=== PATIENT | female | born 1985 | race African-American/Black ===

== ENCOUNTER 2021-08-10 01:49 | Emergency (ER) | payer BC, SELFPAY ==
--- NOTE | ~2021-08-10 | CT_ITS ---
EXAMINATION: CT abdomen pelvis w con EXAM DATE: 08/10/2021 07:55 INDICATION: left sided abdominal pain. TECHNIQUE: Spiral CT of the abdomen and pelvis was performed following intravenous injection of 100 m L Omnipaque 350. Axial, coronal and sagittal images of the abdomen and pelvis were reviewed. The do se-length product (DLP) for this examination was 325.76 mGy-cm. The exposure was tailored according to patient size (auto mA exposure control), and iterative reconstruction (ASIR) was used as additiona l dose reduction technique. There is no prior study for comparison. FINDINGS: The liver, spleen, adrenal glands and pancreas are unremarkable. Gallbladder is unremarkab le. No biliary obstruction. Portal and splenic veins are patent. Kidneys enhance symmetrically. T here is no hydronephrosis. The uterus is retroverted and morphologically normal. Left ovary has cys tic lesion measuring 3.2 x 1.8 cm, likely dominant follicle or hemorrhagic cyst. The bladder is unre markable. There is no retroperitoneal or pelvic lymphadenopathy. There are no findings to suggest appendicitis. The stomach and small bowel are unremarkable. There is expected amount of colonic stool. No free intraperitoneal gas. The heart is normal in size. T here are no pericardial or pleural effusions. The lung bases are unremarkable. The bones are unrema rkable. IMPRESSION: 1. Left ovarian dominant follicle or hemorrhagic cyst. 2. No acute intra-abdominal findings. Reviewed, dictated and finalized at location [facility]. [employer]
[2021-08-10 01:50] VITALS: BP 138/92; PULSE 101; RESP 18; TEMP 36.6; O2SAT 99
[2021-08-10 05:06] VITALS: BP 104/91; PULSE 88; RESP 16; O2SAT 100
[2021-08-10] MEDS: SODIUM CHLORIDE 0.9% IV 1,000 ML 999 ML IV CONT (05:28)
[2021-08-10] MEDS: ONDANSETRON INJ 4 MG/2 ML VIAL IV PUSH (05:28)
[2021-08-10 05:41] LABS: Basophils Percent Auto 0.2 % (0.2-1.2); Hematocrit 46.5 % (37.0-47.0); Hemoglobin 15.7 g/dL (12.0-15.0); Immature Granulocyte Absolute 0.04 K/mm3 (0.00-0.031); Immature Granulocyte Percent A 0.4 % (0-0.5); Lymphocytes Absolute Auto 0.93 K/mm3 (0.9-3.2); Mean Corpuscular HGB Conc 33.8 g/dl (32-36); Mean Corpuscular Hemoglobin 31.3 pg (26-34); Mean Corpuscular Volume 92.6 fl (80-100); Mean Platelet Volume 9.4 fl (7.4-10.4); Monocytes Absolute Auto 0.3 K/mm3 (0.1-0.6); Monocytes Percent Auto 3.1 % (2.6-8.5); Neutrophils Percent Auto 87.3 % (45.5-73.1); Platelet Count Result 220 k/mm3 (150-375); Red Blood Count 5.02 M/mm3 (4.2-5.4); Red Cell Distribution Width 12.3 % (11.5-14.5); White Blood Count 10.3 K/mm3 (4.5-10.0)
[2021-08-10 05:58] LABS: Alanine Aminotransferase 22 U/L (4-35); Albumin Level 4.8 g/dL (3.5-5.1); Alkaline Phosphatase 79 U/L (38-126); Anion Gap 9 mmol/L (8-16); Aspartate Amino Transferase 38 U/L (14-36); Bilirubin,Total 0.6 mg/dL (0.2-1.3); Blood Urea Nitrogen 11 mg/dL (7-17); Calcium 9.7 mg/dL (8.4-10.2); Carbon Dioxide 26 mmol/L (22-30); Chloride 102 mmol/L (98-107); Estimated CRCL calculation 54 ml/min; Estimated Glomerular Filt Rate > 60; Glucose 95 mg/dL (65-110); Lipase 110 U/L (23-300); Potassium 4.1 mmol/L (3.4-5.0); Sodium 137 mmol/L (137-145)
[2021-08-10 06:32] VITALS: BP 108/79; PULSE 83; RESP 16; O2SAT 100
[2021-08-10 07:11] LABS: Add Urine Microscopic? YES; Appearance Urine Clear (Clear); Bilirubin Urine Negative (Negative); Blood Urine 1+ (Negative); Color Urine Yellow (Yellow); Glucose Urine UA Negative (Negative); Ketones Urine 1+ mg/dL (Negative); Leukocyte Esterase Ur Negative LEU/UL (Negative); Mucus Urine Moderate /lpf; Nitrate Urine Negative (Negative); Protein Urine 1+ mg/dL (Negative); Specific Grav Ur 1.027 (1.001-1.035); Squamous Epithelial Cell Urine Occasional /hpf (Few); WBC Urine 0-3 /hpf
[2021-08-10 07:31] LABS: Urine Pregnancy Test Negative
[2021-08-10 07:32] LABS: Pregnancy On Board Control Positive
--- NOTE | 2021-08-10 07:36 | ED.GENADULT ---
HPI - General Adult General Chief complaint: Abdominal Pain <Elvis Zuniga MD - Last Filed: 08/10/21 07:39> Stated complaint: n/v/d, sore throat <Elvis Zuniga MD - Last Filed: 08/10/21 07:39> Time Seen by Provider: 08/10/21 04:53 <Elvis Zuniga MD - Last Filed: 08/10/21 07:39> History of Present Illness HPI narrative: Patient is a 36-year-old female transitioning to male who presents to the ER with abdominal pain. Ongoing for last 2 days. Associate with nausea/vomiting/diarrhea. No known sick contacts. Has pain along the left side of his abdomen. No urinary frequency urgency or dysuria. Has not had similar discomfort to this. No alleviating factors at home. Patient also endorses history of bipolar disorder for which he is not currently taking medication after discussing with his physician and agreeing that they could stop the medication. Reports he is healthy spot in his life with work. <Elvis Zuniga MD - Last Filed: 08/10/21 07:39> Related Data Allergies/adverse reactions: Allergies Allergy/AdvReac Type Severity Reaction Status Date / Time Penicillins Allergy Unknown Verified 08/10/21 05:27 <Elvis Zuniga MD - Last Filed: 08/10/21 07:39> Review of Systems Review of Systems: All systems reviewed & are unremarkable except as noted in HPI and below <Elvis Zuniga MD - Last Filed: 08/10/21 07:39> Constitutional: Constitutional: Denies chills, Denies fever(s) and Denies weakness <Elvis Zuniga MD - Last Filed: 08/10/21 07:39> ENT: Denies nasal congestion and Denies sore throat <Elvis Zuniga MD - Last Filed: 08/10/21 07:39> Gastrointestinal: Gastrointestinal: Reports abdominal pain, Reports diarrhea, Reports nausea and Reports vomiting <Elvis Zuniga MD - Last Filed: 08/10/21 07:39> Genitourinary: Genitourinary: Denies nocturia, Denies dysuria and Denies flank pain <Elvis Zuniga MD - Last Filed: 01/19/22 07:39> Musculoskeletal: Musculoskeletal: Denies back pain and Denies muscle cramps <Elvis Zuniga MD - Last Filed: 08/10/21 07:39> Neurologic: Denies headache(s), Denies focal weakness and Denies numbness <Elvis Zuniga MD - Last Filed: 08/10/21 07:39> PMFSH Past Medical History Medical History: Medical History (Updated 08/10/21 @ 08:32 by Fly Valencia MD) Bipolar disorder <Elvis Zuniga MD - Last Filed: 08/10/21 07:39> Surgical History Surgical History: Surgical History (Updated 08/10/21 @ 07:38 by Elvis Zuniga MD) Hx of breast reduction, elective <Elvis Zuniga MD - Last Filed: 08/10/21 07:39> Exam Narrative: GENERAL: Well-appearing, well-nourished, and in no acute distress. HEAD: Normocephalic, atraumatic. NECK: Supple. CHEST: Clear to auscultation. No respiratory distress. HEART: Regular rate and rhythm. Normal peripheral pulses. ABDOMEN: Soft, left upper and lower quadrant tenderness with guarding in the upper quadrant, nondistended, normal active bowel sounds. EXTREMITIES: Normal range of motion. No edema. SKIN: Warm, dry, no rash. NEURO: Alert and oriented x3. PSYCH: Normal mood and affect. <Elvis Zuniga MD - Last Filed: 08/10/21 07:39> Course Course Emergency Course: Persistent pain despite morphine with some guarding on exam. Will obtain CT scan. Labs otherwise normal with ketones and slight elevation of white count. Transfer care to Dr. Valencia. <Elvis Zuniga MD - Last Filed: 08/10/21 07:39> Reevaluation(s) Reevaluation #1: Impressions Abdomen/Pelvis CT 08/10/21 08:06 IMPRESSION: 1. Left ovarian dominant follicle or hemorrhagic cyst. 2. No acute intra-abdominal findings. Patient care was signed out to me by Dr. Zuniga. At time of signout CT was pending. CT did show a left ovarian dominant follicle or hemorrhagic cyst. Patient was updated on the results of his CT and his labs. The patient had been in disc
[2021-08-10 09:00] VITALS: BP 101/70; PULSE 76; RESP 16; O2SAT 97
== END 2021-08-10 09:00 | disposition home or self-care (01) ==
PROVIDERS: Emergency Provider Emergency Medicine
DX: N83.202 Unspecified ovarian cyst, left side (principal); F31.9 Bipolar disorder, unspecified
CPT/HCPCS: 36415; 74177; 80053; 81001; 81025; 83690; 85025; 96361; 96374; 99284; J2405; J7030; Q9967

== ENCOUNTER 2021-08-13 06:10 | Observation (INO) | payer BC, SELFPAY ==
[2021-08-13] VITALS (12 sets, daily range): BP systolic 93–137; BP diastolic 57–88; PULSE 77–112; RESP 14–25; TEMP 36.2–36.8; O2SAT 99–100
--- NOTE | ~2021-08-13 | US_ITS ---
US pelvic complete DATE: 08/13/2021 08:16 INDICATION: Left lower quadrant pain TECHNIQUE: Real-time imaging via transabdominal approach only. Patient declined transvaginal examinat ion. COMPARISON: 08/10/2019 CT abdomen pelvis FINDINGS: The examination is limited due to suboptimal distention of the urinary bladder providing li mited window for visualization of the pelvic structures on transabdominal examination; patient declin ed transvaginal examination. Retroverted uterus. There is particularly limited visualization of the retroverted uterine fundus. Ce ntral endometrial echo complex in the lower uterine segment measures 3 mm AP dimension. Approximately 3 cm left ovarian cyst. No free pelvic fluid collection is noted. IMPRESSION: Limited transabdominal examination due to suboptimal bladder distention Retroverted uterus Approximately 3 cm left ovarian cyst Reviewed, dictated and finalized at [facility]. Reviewed, dictated and finalized at location A. [employer] IMPRESSION: Limited transabdominal examination due to suboptimal bladder disten tion Retroverted uterus Approximately 3 cm left ovarian cyst
--- NOTE | ~2021-08-13 | US_ITS ---
US transvaginal DATE: 08/13/2021 10:33 INDICATION: Left adnexal pain TECHNIQUE: Transvaginal imaging, color flow Doppler analysis COMPARISON: 08/10/2021 CT abdomen pelvis 08/13/2021 pelvic transabdominal ultrasound examination FINDINGS: The left ovary is situated deep in the pelvis. Ovarian margins are ill-defined. There is up to approximately 4-5 cm cystic area in the left adnexal area, apparently of ovarian origin. No Doppl er signal or color flow of the left ovary is detected by transvaginal examination. Left ovarian torsi on is not excluded. The right ovary is not visualized. IMPRESSION: Possible 4 to 5 cm cystic area in the left adnexal area, likely of ovarian origin. Margin s of left ovary are not well-defined. There is no color flow or Doppler signal from the left ovary. L eft ovarian torsion is not excluded. Reviewed, dictated and finalized at [facility]. Reviewed, dictated and finalized at location [facility]. ZIFF DAVIS IMPRESSION: Possible 4 to 5 cm cystic area in the left adnexal area, likely of ovarian origin. Margins of left ovary are not well-defined. There is no color f low or Doppler signal from the left ovary. Left ovarian torsion is not excluded .
[2021-08-13 06:59] LABS: Basophils Percent Auto 0.3 % (0.2-1.2); Hematocrit 46.7 % (37.0-47.0); Hemoglobin 15.8 g/dL (12.0-15.0); Immature Granulocyte Absolute 0.04 K/mm3 (0.00-0.031); Immature Granulocyte Percent A 0.4 % (0-0.5); Lymphocytes Absolute Auto 0.66 K/mm3 (0.9-3.2); Lymphocytes Percent Auto 7.2 % (18.3-44.2); Mean Corpuscular HGB Conc 33.8 g/dl (32-36); Mean Corpuscular Hemoglobin 31.3 pg (26-34); Mean Corpuscular Volume 92.5 fl (80-100); Mean Platelet Volume 9.4 fl (7.4-10.4); Monocytes Absolute Auto 0.3 K/mm3 (0.1-0.6); Neutrophils Absolute Auto 8.2 K/mm3 (1.3-6.7); Neutrophils Percent Auto 89.1 % (45.5-73.1); Platelet Count Result 202 k/mm3 (150-375); Red Blood Count 5.05 M/mm3 (4.2-5.4); Red Cell Distribution Width 12.4 % (11.5-14.5); White Blood Count 9.2 K/mm3 (4.5-10.0)
[2021-08-13 07:08] LABS: Add Urine Microscopic? YES; Appearance Urine Clear (Clear); Bilirubin Urine Negative (Negative); Blood Urine 1+ (Negative); Color Urine Yellow (Yellow); Glucose Urine UA Negative (Negative); Ketones Urine 2+ mg/dL (Negative); Leukocyte Esterase Ur Trace LEU/UL (Negative); Mucus Urine Rare /lpf; Nitrate Urine Negative (Negative); Protein Urine 1+ mg/dL (Negative); RBC Urine 0-2 /hpf (0-2); Specific Grav Ur 1.024 (1.001-1.035); Squamous Epithelial Cell Urine Few /hpf (Few); Urobilinogen Urine Negative mg/dL (<2.0)
[2021-08-13 07:20] LABS: Alanine Aminotransferase 19 U/L (4-35); Alkaline Phosphatase 92 U/L (38-126); Anion Gap 21 mmol/L (8-16); Aspartate Amino Transferase 30 U/L (14-36); Bilirubin,Total 1.1 mg/dL (0.2-1.3); Blood Urea Nitrogen 13 mg/dL (7-17); Calcium 9.6 mg/dL (8.4-10.2); Carbon Dioxide 13 mmol/L (22-30); Chloride 101 mmol/L (98-107); Estimated CRCL calculation 54 ml/min; Estimated Glomerular Filt Rate > 60; Glucose 64 mg/dL (65-110); Lipase 133 U/L (23-300); Potassium 4.4 mmol/L (3.4-5.0); Sodium 135 mmol/L (137-145)
--- NOTE | 2021-08-13 07:20 | PC.NURSE ---
Pt. preferred name Avel, and pronouns he, him
--- NOTE | 2021-08-13 08:42 | ED.GENADULT ---
HPI - General Adult General Chief complaint: Abdominal Pain Stated complaint: n/d, l abd pain, dizzy Time Seen by Provider: 08/13/21 06:25 History of Present Illness HPI narrative: Patient is a 36-year-old female who is male that presents ER with abdominal pain. Left-sided. Worse with movement. Ongoing since 08/08/2021. Associate with diarrhea as well as nausea. Reports diarrhea still present but has improved. Reports that her main issue is that she cannot get to sleep at night. She has tried no medications for this. Patient recently underwent CT scan which showed left ovarian cyst. She denies any discharge or bleeding. No fevers or chills or sweats. No chest pain or chest pressure. Related Data Allergies Allergy/AdvReac Type Severity Reaction Status Date / Time Penicillins Allergy Unknown Verified 08/10/21 05:27 Review of Systems Review of Systems: All systems reviewed & are unremarkable except as noted in HPI and below Constitutional: Constitutional: Denies chills, Denies fever(s) and Denies weakness ENT: Denies nasal congestion and Denies sore throat Cardiovascular: Cardiovascular: Denies chest pain, Denies rapid heart rate and Denies radiating jaw, neck or arm pain Respiratory: Respiratory: Denies cough and Denies dyspnea Gastrointestinal: Gastrointestinal: Reports abdominal pain, Reports diarrhea and Denies nausea Genitourinary: Genitourinary: Denies nocturia, Denies dysuria and Denies flank pain PMFSH Past Medical History Medical History (Updated 08/13/21 @ 11:09 by Elvis Zuniga MD) Bipolar disorder Surgical History Surgical History (Updated 08/10/21 @ 07:38 by Elvis Zuniga MD) Hx of breast reduction, elective Exam Narrative: GENERAL: Well-appearing, well-nourished, and in no acute distress. HEAD: Normocephalic, atraumatic. CHEST: Clear to auscultation. No respiratory distress. HEART: Regular rate and rhythm. Normal peripheral pulses. ABDOMEN: Soft, tender palpation left upper and left lower quadrant, nondistended. EXTREMITIES: Normal range of motion. No edema. SKIN: Warm, dry, no rash. NEURO: Alert and oriented x3. PSYCH: Normal mood and affect. Course Course Emergency Course: Discussed results of original ultrasound with patient. Discussed that there is need for transvaginal ultrasonography to fully evaluate the left ovary. Patient then went back to ultrasound. Read shows possible torsion. Discussed case with Dr. Baez. He would like the patient admitted for observation to [facility] and for the patient be kept n.p.o. as he may require surgery. Patient verbalized understanding treatment plan. Vital Signs Vital signs: Vital Signs Temperature 97.8 F 08/13/21 06:18 Pulse Rate 106 H 08/13/21 06:18 Respiratory Rate 18 08/13/21 06:18 Blood Pressure 110/75 08/13/21 06:18 Pulse Oximetry 100 08/13/21 06:18 Temperature 97.8 F 08/13/21 06:18 Pulse Rate 97 08/13/21 09:37 Respiratory Rate 14 08/13/21 09:37 Blood Pressure 137/88 08/13/21 09:37 Pulse Oximetry 100 08/13/21 09:37 Medical Decision Making Vital Signs Vital Signs: Vital Signs Temperature 97.8 F 08/13/21 06:18 Pulse Rate 106 H 08/13/21 06:18 Respiratory Rate 18 08/13/21 06:18 Blood Pressure 110/75 08/13/21 06:18 Pulse Oximetry 100 08/13/21 06:18 Temperature 97.8 F 08/13/21 06:18 Pulse Rate 97 08/13/21 09:37 Respiratory Rate 14 08/13/21 09:37 Blood Pressure 137/88 08/13/21 09:37 Pulse Oximetry 100 08/13/21 09:37 Lab Data Result diagrams: 08/13/21 06:47 08/13/21 06:47 Labs: Lab Results 08/13/21 08/13/21 08/13/21 Range/Units 06:47 06:47 06:51 WBC 9.2 (4.5-10.0) K/mm3 RBC 5.05 (4.2-5.4) M/mm3 Hgb 15.8 H (12.0-15.0) g/dL Hct 46.7 (37.0-47.0) % MCV 92.5 (80-100) fl MCH 31.3 (26-34) pg MCHC 33.8 (32-36) g/dl RDW 12.4 (11.5-14.5) % Plt Count 202 (150-375) k/mm3
[2021-08-13] MEDS: ONDANSETRON INJ 4 MG/2 ML VIAL IV PUSH ×2 (09:36→22:47)
--- NOTE | 2021-08-13 11:50 | PC.NURSE ---
This patient, Vicky Fournier, was received from ED via wheelchair on 08/13/21 at 1150. Patient oriented to unit policies and routines
--- NOTE | 2021-08-13 12:12 | PM.IMHP ---
H&P: HPI History of Present Illness Date/Time: 08/13/21 12:12 Chief Complaint: abdominal pain ovarian torsion Narrative: 36 yo transgender male who presents with abdominal pain. Pt has been having persistent abdominal pain for the past two weeks. Pt initially attributed the pain to missing his testosterone injection and the potential start of a menses. Pt then gave himself the testosterone and never had a menses. He then started having intense shooting pain in the area. The pain was so intense it caused nausea and emesis. Pt then developed diarrhea. Pt presented to the ER today for worsening pain. Pt received transvaginal US that showed concerns for a 4-5 cm cystic structure in the left ovary and no discernable blood flow. Pt is tender to palpation with guarding in the LLQ. Review of Systems Cardiovascular: Cardiovascular: Denies chest pain, Denies leg edema, Denies palpitations, Denies dyspnea and Denies dyspnea on exertion Respiratory: Respiratory: Denies cough, Denies dyspnea and Denies dyspnea on exertion Gastrointestinal: Gastrointestinal: Denies abdominal pain, Denies constipation, Denies diarrhea, Denies nausea and Denies vomiting Genitourinary: Genitourinary: Denies hematuria, Denies urinary frequency, Denies dysuria, Denies pelvic pain, Denies urinary incontinence and Denies vaginal discharge Neurologic: Reports system reviewed and no additional complaints, except as documented Psychiatric: Psychiatric: Reports no additional psychiatric complaints Endocrine: Endocrine: Denies palpitations PMFSH Past Medical History Medical History (Updated 08/13/21 @ 11:09 by Elvis Zuniga MD) Bipolar disorder Surgical History Surgical History (Updated 08/10/21 @ 07:38 by Elvis Zuniga MD) Hx of breast reduction, elective Meds Home Medications and Allergies Allergies Allergy/AdvReac Type Severity Reaction Status Date / Time Penicillins Allergy Unknown Verified 08/10/21 05:27 Vital Signs Vital Signs - 24 hr 08/13/21 06:18 08/13/21 07:19 08/13/21 09:37 Temperature 36.6 C Pulse Rate 106 H 97 97 Respiratory Rate 18 14 14 Blood Pressure 110/75 103/79 137/88 Pulse Oximetry 100 100 100 08/13/21 11:15 Temperature Pulse Rate 97 Respiratory Rate 14 Blood Pressure 100/87 Pulse Oximetry 100 Exam Const: General: no acute distress Eyes: EOM: EOMs intact bilaterally Neck: Neck: supple Thyroid: thyroid normal Chest: Breast/axilla inspection: normal inspection of the breasts Breast/axilla palpation: normal palpation of the breasts, normal palpation of the axillae and no axillary lymphadenopathy Resp: Effort & Inspection: normal respiratory effort Auscultation: clear to auscultation bilaterally Cardio: Rate: regular rate Rhythm: regular rhythm GI: Inspection: non-distended GI Palp: Yes abdominal tenderness, Yes Soft to palpation, Yes Tenderness to palpation present (GI) and Yes Guarding due to palpation present (GI) Auscultation: normal bowel sounds Skin: General skin exam: normal color and no rashes or lesions noted Neuro: Cognition (Neuro): normal cognition Speech: normal speech Extrem: General: normal to inspection and no edema Psych: Mental Status: mental status grossly normal Affect: normal affect H&P: Results Labs Labs: Short CBC 08/13/21 Range/Units 06:47 WBC 9.2 (4.5-10.0) K/mm3 Hgb 15.8 H (12.0-15.0) g/dL Hct 46.7 (37.0-47.0) % Plt Count 202 (150-375) k/mm3 BMP 08/13/21 06:47 Sodium 135 L Potassium 4.4 Chloride 101 Carbon Dioxide 13 L BUN 13 Creatinine 1.00 Glucose 64 L Calcium 9.6 Liver Function 08/13/21 Range/Units 06:47 Total Bilirubin 1.1 (0.2-1.3) mg/dL AST 30 (14-36) U/L ALT 19 (4-35) U/L Alkaline Phosphatase 92 (38-126) U/L Albumin 5.0 (3.5-5.1) g/dL Urine 08/13/21 Range/Units 06:51 Urine Color Yellow (Yellow) Urine Appearance Clear (Clear) Urine pH 5.0 (5.0-9.0) Ur
[2021-08-13] MEDS: LACTATED RINGERS 1,000 ML 125 ML (12:17)
[2021-08-13] MEDS: MORPHINE SULFATE (*CRX) 4 MG/ML INJ IV PUSH (12:18)
--- NOTE | 2021-08-13 12:18 | WPDHPUPDATE1 ---
History and Physical Update Update Date/Time: 08/13/21 12:18 History and Physical has been reviewed, including an updated exam of the patient. There are NO changes in the patient's condition. Risks, benefits, and alternatives have been discussed and questions answered. Patient agrees to proceed with procedure.
--- NOTE | 2021-08-13 12:21 | WPDANESEPP ---
Anes - Eval Pre Procedure Procedure: Exploratory Laparotomy Date/Time: 08/13/21 12:21 Surgeon: Sasha Preop Diagnosis: Torsion Left Ovary Pre Op Diagnosis: left ovarian torsion Patient Data Age: 36 Gender: F Height: 1.57 m Weight: 61.24 kg Last Vital Signs Temp 97.8 F 08/13/21 06:18 Pulse 97 08/13/21 11:15 Resp 14 08/13/21 11:15 BP 100/87 08/13/21 11:15 Pulse Ox 100 08/13/21 11:15 Allergies Allergy/AdvReac Type Severity Reaction Status Date / Time Penicillins Allergy Unknown Verified 08/10/21 05:27 Laboratory Tests 08/13/21 08/13/21 08/13/21 06:47 06:47 06:51 WBC 9.2 K/mm3 K/mm3 (4.5-10.0) RBC 5.05 M/mm3 M/mm3 (4.2-5.4) Hgb 15.8 g/dL H g/dL (12.0-15.0) Hct 46.7 % % (37.0-47.0) MCV 92.5 fl fl (80-100) MCH 31.3 pg pg (26-34) MCHC 33.8 g/dl g/dl (32-36) RDW 12.4 % % (11.5-14.5) Plt Count 202 k/mm3 k/mm3 (150-375) MPV 9.4 fl fl (7.4-10.4) Immature Gran % (Auto) 0.4 % % (0-0.5) Neut % (Auto) 89.1 % H % (45.5-73.1) Lymph % (Auto) 7.2 % L % (18.3-44.2) [place] % (Auto) 3.0 % % (2.6-8.5) Eos % (Auto) 0.0 % % (0-4.4) Baso % (Auto) 0.3 % % (0.2-1.2) Lymph # (Auto) 0.66 K/mm3 L K/mm3 (0.9-3.2) [place] # (Auto) 0.3 K/mm3 K/mm3 (0.1-0.6) Eos # (Auto) 0.0 K/mm3 K/mm3 (0-0.3) Baso # (Auto) 0.0 K/mm3 K/mm3 (0.0-0.1) Abs Immat Gran (auto) 0.04 K/mm3 H K/mm3 (0.00-0.031) Absolute Neuts (auto) 8.2 K/mm3 H K/mm3 (1.3-6.7) Absolute Nucleated RBC 0.0 K/mm3 K/mm3 (0.0-0.012) Nucleated RBC % 0.0 % % (0.0-0.2) Sodium 135 mmol/L L mmol/L (137-145) Potassium 4.4 mmol/L mmol/L (3.4-5.0) Chloride 101 mmol/L mmol/L (98-107) Carbon Dioxide 13 mmol/L L mmol/L (22-30) Anion Gap 21 mmol/L H mmol/L (8-16) BUN 13 mg/dL mg/dL (7-17) Creatinine 1.00 mg/dL mg/dL (0.7-1.0) Estim Creat Clear Calc 54 ml/min ml/min Estimated GFR > 60 (59 - ) Glucose 64 mg/dL L mg/dL (65-110) Calcium 9.6 mg/dL mg/dL (8.4-10.2) Total Bilirubin 1.1 mg/dL mg/dL (0.2-1.3) AST 30 U/L U/L (14-36) ALT 19 U/L U/L (4-35) Alkaline Phosphatase 92 U/L U/L (38-126) Total Protein 9.0 g/dL H g/dL (6.3-8.2) Albumin 5.0 g/dL g/dL (3.5-5.1) Lipase 133 U/L U/L (23-300) Urine Color Yellow (Yellow) Urine Appearance Clear (Clear) Urine pH 5.0 (5.0-9.0) Ur Specific [place] 1.024 (1.001-1.035) Urine Protein 1+ mg/dL H mg/dL (Negative) Urine Glucose (UA) Negative mg/dL mg/dL (Negative) Urine Ketones 2+ mg/dL H mg/dL (Negative) Ur Blood (Man) 1+ H (Negative) Urine Nitrate Negative (Negative) Urine Bilirubin Negative (Negative) Urine Urobilinogen Negative mg/dL mg/dL (<2.0) Leukocyte Esterase Rfl Trace ALEX/UL H ALEX/UL (Negative) Urine RBC 0-2 /hpf /hpf (0-2) Urine WBC 4-6 /hpf H /hpf Ur Squamous Epith Cells Few /hpf /hpf (Few) Urine Mucus Rare /lpf /lpf Patient hx anesthesia problems: none Family hx anesthesia problems: none Prior surgeries: breast reduction Results Review: All pre-operative results and documents have been reviewed as part of the pre-operative evaluation. [facility] Past Medical History Medical History Bipolar disorder Surgical History Surgical History Hx of breast reduction, elective Social History Social History (Reviewed 08/13/21 @ 12:23 by Lovely Thomas
--- NOTE | 2021-08-13 13:10 | PC.NURSE ---
Pt transferred to OR via bed.
--- NOTE | 2021-08-13 13:13 | WPDANESEFPP ---
Anes - Eval Final PreProcedure Day of Procedure 08/13/21 13:13 Patient weight: normal Heart: regular rate and rhythm Lungs: clear to auscultation and normal air movement Airway: Mallampati scale class II Neurological: alert and oriented Last oral intake: >/= 8 hours ASA classification: II Emergent: yes Anesthetic plan: proceed Anesthesia type and monitoring: general ETT and standard monitoring Results Review: All pre-operative results and documents have been reviewed as part of the pre-operative evaluation. Informed Consent: The patient's anesthetic plan and its attendant risks and benefits were discussed with the patient/family/POA. Questions were solicited and answers provided to the satisfaction of the patient/family/POA.
--- NOTE | 2021-08-13 14:11 | W.PM.PROC2 ---
Procedure Note - Detailed Date of Procedure 08/13/21 Pre-op Diagnosis left ovarian torsion abdominal pain Post-op Diagnosis same Procedure Performed diagnostic laparoscopy left salpingo-oophorectomy Surgeon Asim Baez MD Anesthesia general Indications abdominal pain, 4-5 cm left adnexal cyst on US with no detectable blood flow Findings dense adhesions between the left adnexa and the uterine serosa and pelvic sidewall, multiple paratubal cysts Description of Procedure The patient was taken to the operating room where general endotracheal anesthesia was undertaken and found to be adequate. She was then prepped and draped in the dorsal lithotomy position and placed in adjustable stirrups. A pre-operative team brief and a time out were completed. A catheter was placed to drain the bladder. Retractors were placed placed in the vagina and the cervix was identified. An acorn uterine manipulator was placed. Attention was then turned to the abdomen which was anesthetized umbilically with injected anesthestic. A 10 mm skin incision was made in the umbilicus. A 10 mm optical trocar was then placed with direct camera visualization of the abdominal layers during placement. The trocar stylet was removed and the camera was used to verify intra-abdominal placement. CO2 insufflation was then connected and resumed. The pelvis was inspected. A left lower quadrant 5 mm port was placed, in addition to a right lower quadrant 5 port in the standard fashion after using local anesthetic. The pelvis survey was performed. The left ovary was noted to be intimately adherent to the left ovarian fossa and the uterine peritoneum. There were multiple paratubal cysts noted in the left adnexa. The left adnexa was inflamed. The Right ovary was noted to have a small simple appearing cyst. The decision was made to proceed with left salpingo-oophorectomy. The course of the ureter was identified bilaterally. The left infundibulopelvic ligament was identified and triple ligated and transected with the Ligasure device. The dissection was continued along the inferior aspect of the ovary through the broad ligament and inferior mesosalpinx. The utero-ovarian ligament was identified, ligated and transected. The ovary was then bluntly dissected from the uterine peritoneum. The adherent peritoneal connection was transected with the ligasure device. The left fallopian tube was transected near its insertion site to the uterine fundus. The left fallopian tube and ovary were then placed in a 10 mm endopouch. The specimen was removed through the umbilical 10 mm port site without difficulty. The surgical field was thoroughly irrigated using normal saline. All surgical beds were noted to be hemostatic. A Fer-Thommason device was used to closed the 10 mm umbilical site with Vicryl suture. The abdomen was relieved of all CO2 gas. All remaining trocars were removed from the abdomen. Sponge, lap and needle counts were correct. All skin incisions were closed with 4-0 Vicryl suture subcuticularly. The uterine manipulator was removed from the uterus. Hemostasis of the cervix was noted. The urinary catheter was removed. The patient was taken out of dorsal lithotomy position. Anesthesia was reversed. The patient was taken to the PACU. Estimated Blood Loss 25 Urine Output 100 Drains No Packing No Pathology yes (left ovary and fallopian tube, paratubal cysts) Complications No immediate complications Condition stable Disposition PACU
[2021-08-13] MEDS: LACTATED RINGERS 1,000 ML 30 ML IV CONT (14:25)
[2021-08-13] MEDS: fentaNYL CITRATE INJ (*CRX) 100 MCG/2 ML VIAL 25 MCG IV PUSH ×7 (14:48→15:10)
--- NOTE | 2021-08-13 15:25 | PC.NURSE ---
This patient, Vicky Fournier, was received from PACU per pt bed on 08/13/21 at 1525. Patient/family oriented to unit policies and routines.
[2021-08-13] MEDS: diphenhydrAMINE HCl INJ 50 MG/ML VIAL 25 MG IV PUSH (16:37)
[2021-08-13] MEDS: HYDROcodone/acetaminophen (*CRX) 5-325 MG TABLET 1 TAB PO (16:38)
[2021-08-13] MEDS: MORPHINE SULFATE (*CRX) 2 MG/ML INJ IV PUSH ×2 (17:26→21:16)
[2021-08-13] MEDS: IBUPROFEN 600 MG TABLET PO (17:27)
[2021-08-14 00:05] VITALS: BP 97/66; PULSE 76; RESP 16; TEMP 36.3; O2SAT 100
[2021-08-14 04:40] VITALS: BP 103/79; PULSE 84; RESP 16; TEMP 36.4; O2SAT 100
[2021-08-14] MEDS: HYDROcodone/acetaminophen (*CRX) 5-325 MG TABLET 1 TAB PO (04:40)
[2021-08-14] MEDS: IBUPROFEN 600 MG TABLET PO (04:41)
--- NOTE | 2021-08-14 08:34 | P.DS_ITS ---
DS: Admitting Diagnosis Discharge Date 08/14/21 Admitting Diagnosis abdominal pain suspected ovarian torsion DS: Summary Hospital Course Hospital Course: 36 yo transgender male who presented with acute onset abdominal pain. Pt had pelvic US that showed a enlarged cystic left ovary without detectable blood flow. Pt had an acutely tender abdomen so decision was made for surgical managment. Pt under went diagnostic laparoscopy with left salpingo- oophorectomy. Pt is doing well post-op. He reports some mild nausea. He states his pain is controlled with PO analgesia. He is voiding spontaneously. Time spent discussing smoking cessation with patient: 3 to 10 minutes Status at Discharge Overall status at discharge: patient is progressing back to baseline Time Spent with Patient Time attestation: Total time spent providing and/or coordinating discharge services: Time spent: Less than 30 minutes Exam Const: General: cooperative, healthy appearing and comfortable Nutritional Appearance: average body habitus Resp: Effort & Inspection: normal respiratory effort and able to speak in complete sentences Cardio: Rate: regular rate Rhythm: regular rhythm GI: Inspection: incision GI Palp: Yes abdominal tenderness, Yes Soft to palpation and No Guarding due to palpation present (GI) DS: Data Data Completed and Pending Pending studies at discharge: Pending at discharge 08/13/21 13:51 Surgical [PTH] Routine Discharge Plan Discharge Consulting providers: Rishabh Meza Discharging Clinician: Asim Baez Patient Disposition: Home, Self-Care Activity: as tolerated and pelvic rest Diet: regular Patient Instructions: Antibiotic Form, Salpingo-Oophorectomy (DC) Stand Alone Forms: General Discharge Information Follow-up/Referrals: Asim Baez MD [Physician] - 2 Weeks Discharge Medications: New hydrocodone-acetaminophen 5-325 mg tablet 1 tablet PO Q6H PRN (Reason: pain) Qty: 28 RF: 0 ibuprofen 600 mg tablet 600 mg PO Q6H PRN (Reason: pain) Qty: 30 RF: 0 ondansetron 4 mg tablet,disintegrating 4 mg PO Q6H PRN (Reason: nausea and vomiting) Qty: 30 RF: 0 acetaminophen 500 mg capsule 500 mg PO Q6H PRN (Reason: pain) Qty: 30 RF: 0 Date of admission: 08/13/21 11:05 Primary Care Provider: PHYSICIAN,INFECTION PREVENTION COORDINATOR Admitting Provider: Asim Baez Attending physician on admission: Asim Baez Condition: Stable
[2021-08-14 08:45] VITALS: BP 106/75; PULSE 85; RESP 18; TEMP 36.6
--- NOTE | 2021-08-14 10:35 | PC.NURSE ---
MD called prescriptions into pt's pharmacy since he opted to change pharmacies today. Pt was taking the bus to picker his prescriptions and then to home. MD aware.
== END 2021-08-14 10:35 | disposition home or self-care (01) ==
LOC: ANHED 11:11 → ANHOB2 11:24
PROVIDERS: Emergency Medicine; Admitting Provider Student in an Organized Health Care Education/Training Program; Emergency Provider Emergency Medicine; Visit Provider Student in an Organized Health Care Education/Training Program
PROC: (CPT 49320; principal; 2021-08-13 13:00)
DX: N83.512 Torsion of left ovary and ovarian pedicle (principal); D27.1 Benign neoplasm of left ovary; N73.6 Female pelvic peritoneal adhesions (postinfective); N83.8 Other noninflammatory disorders of ovary, fallopian tube and broad ligament; N83.291 Other ovarian cyst, right side; F31.9 Bipolar disorder, unspecified; F64.8 Other gender identity disorders
CPT/HCPCS: 58661; 36415; 76830; 76856; 80053; 81001; 81025; 83690; 85025; 88305; 96374; 99285; A9270; G0378; J0330; J1100; J1200; J2250; J2270; J2405; J2704; J2710; J3010; J7030; J7120

== ENCOUNTER 2021-10-18 18:29 | Emergency (ER) | payer BC, SELFPAY ==
--- NOTE | ~2021-10-18 | XR_ITS ---
XR chest 2V DATE: 10/18/2021 19:11 INDICATION: Chest pain, shortness of breath. Smoker. TECHNIQUE: PA and lateral views COMPARISON: None FINDINGS: Normal heart size. No hilar or mediastinal enlargement. No pulmonary infiltrate or consolid ation, pleural effusion or pulmonary vascular congestion or pneumothorax. Mild levoscoliosis of the thoracic spine. IMPRESSION: No active cardiopulmonary disease Reviewed, dictated and finalized at location A.
--- NOTE | 2021-10-18 18:43 | ED.CHESTPAIN ---
HPI - Chest Pain General Chief Complaint: Anxiety <Aniya Hughes MD - Last Filed: 10/18/21 21:59> Stated Complaint: CHEST PAIN <Aniya Hughes MD - Last Filed: 10/18/21 21:59> Time Seen by Provider: 10/18/21 18:43 <Aniya Hughes MD - Last Filed: 10/18/21 21:59> Source: patient <Aniya Hughes MD - Last Filed: 10/18/21 21:59> Mode of arrival: EMS <Aniya Hughes MD - Last Filed: 10/18/21 21:59> Limitations: no limitations <Aniya Hughse MD - Last Filed: 10/18/21 21:59> History of Present Illness HPI narrative: Patient is a 36-year-old transgender male (female to male transition, pronouns he/him) with a history of bipolar disorder, depression, anxiety, presenting to the emergency department for evaluation of panic attack. Patient states that he has had increasing anxiety daily with numerous panic attacks daily including 1 yesterday. Patient states that he had a panic attack after getting her teeth pulled at the dentist today, states that he was very nervous regarding the dentist. Patient states he had 2 teeth pulled at the dentist office today. Patient states that he began to feel short of breath, panic type feelings this afternoon, thus EMS was called. Patient denies any current chest pain. Patient is on hormone replacement therapy. He denies leg swelling or calf pain. Denies history of coagulopathy. Patient denies any suicidal or homicidal ideation states that his depression is quite severe, but does not want to end his life. Patient states that he recently moved to this area, has established with a primary care physician Dr. Bustos. <Aniya Hughes MD - Last Filed: 10/18/21 21:59> Related Data Home Medications: Home Medications Medication Instructions Recorded Confirmed testosterone cypionate 200 mg/mL 100 mg IM WEEKLY ml 08/22/21 10/07/21 intramuscular oil <Aniya Hughes MD - Last Filed: 10/18/21 21:59> Allergies/Adverse Reactions: Allergies Allergy/AdvReac Type Severity Reaction Status Date / Time Penicillins Allergy Unknown Verified 10/07/21 14:08 <Aniya Hughes MD - Last Filed: 10/18/21 21:59> Review of Systems Review of Systems: CONSTITUTIONAL: Denies fever, chills, or sweats. EYES: Denies visual changes, redness, or discharge. ENT: Denies rhinorrhea, congestion, sore throat, or otalgia. CARDIOVASCULAR: Denies current chest pain, palpitations, or edema. RESPIRATORY: Denies cough, reports shortness of breath GASTROINTESTINAL: Denies abdominal pain, nausea, vomiting, or diarrhea. GENITOURINARY: Denies dysuria or hematuria. SKIN: Denies rash or itching. MUSCULOSKELETAL: Denies back pain, joint pain, or myalgia. NEUROLOGIC: Denies headache, numbness, or weakness. PSYCHIATRIC: Reports anxiety and depression, denies SI or HI <Aniya Hughes MD - Last Filed: 10/18/21 21:59> PMFSH Past Medical History Medical History: Medical History Bipolar disorder Bipolar II disorder Post-operative pain Torsion of left ovary Transgender woman on hormone therapy <Aniya Hughes MD - Last Filed: 10/18/21 21:59> Surgical History Surgical History: Surgical History Hx of breast reduction, elective <Aniya Hughes MD - Last Filed: 10/18/21 21:59> Family History Family History: Family History Father Hypertension Mother Hypertension Depression Anxiety Sibling Anxiety Depression <Aniya Hughes MD - Last Filed: 10/18/21 21:59> Social History Social History: Social History Tobacco type: cigarettes and e-cigarettes/vaping Alcohol intake: current Alcohol use details: 2-3 wine coolers a month Substance use: current Substance use type: unknown Additional occupation/education comments: [employer] worker Gender
[2021-10-18 18:50] VITALS: BP 111/90; PULSE 106; RESP 23; TEMP 36.6; O2SAT 100
--- NOTE | 2021-10-18 18:50 | PC.NURSE ---
EDP at bedside to assess pt.
--- NOTE | 2021-10-18 18:53 | ECG_ITS ---
Measurements Intervals [place] Rate: 78 P: 65 HI: 160 QRS: 31 QRSD: 81 T: 57 QT: 373 QTc: 425 Interpretive Statements SINUS RHYTHM VOLTAGE CRITERIA FOR LVH [MEETS CRITERIA IN ONE OF: R(aVL), S(V1), R(V5), R(V5/V6)+S(V1)] BASELINE ARTIFACT BORDERLINE ECG NO PREVIOUS ECG AVAILABLE FOR COMPARISON Electronically Signed On 10-19-2021 8:40:13 CDT by Bridger Sheridan M.D.
--- NOTE | 2021-10-18 19:10 | PC.NURSE ---
Patient report given to MARIN Burrows. All questions answered and care of patient transferred.
[2021-10-18] MEDS: LORazepam (*CRX) 0.5 MG TABLET PO (19:21)
[2021-10-18] MEDS: SODIUM CHLORIDE 0.9% IV 1,000 ML 999 ML IV CONT (19:21)
[2021-10-18 19:59] LABS: Basophils Percent Auto 0.2 % (0.2-1.2); Hematocrit 47.9 % (37.0-47.0); Hemoglobin 16.3 g/dL (12.0-15.0); Immature Granulocyte Absolute 0.06 K/mm3 (0.00-0.031); Immature Granulocyte Percent A 0.4 % (0-0.5); Lymphocytes Absolute Auto 1.29 K/mm3 (0.9-3.2); Lymphocytes Percent Auto 8.4 % (18.3-44.2); Mean Corpuscular Hemoglobin 31.4 pg (26-34); Mean Corpuscular Volume 92.3 fl (80-100); Mean Platelet Volume 9.5 fl (7.4-10.4); Monocytes Absolute Auto 0.6 K/mm3 (0.1-0.6); Monocytes Percent Auto 4.1 % (2.6-8.5); Neutrophils Absolute Auto 13.3 K/mm3 (1.3-6.7); Neutrophils Percent Auto 86.9 % (45.5-73.1); Platelet Count Result 269 k/mm3 (150-375); Red Blood Count 5.19 M/mm3 (4.2-5.4); White Blood Count 15.3 K/mm3 (4.5-10.0)
[2021-10-18 20:12] LABS: D Dimer 0.39 ug/mL (<0.48)
[2021-10-18 20:14] LABS: Anion Gap 12 mmol/L (8-16); Blood Urea Nitrogen 16 mg/dL (7-17); Calcium 9.4 mg/dL (8.4-10.2); Carbon Dioxide 25 mmol/L (22-30); Chloride 101 mmol/L (98-107); Estimated Glomerular Filt Rate > 60; Glucose 111 mg/dL (65-110); Potassium 3.8 mmol/L (3.4-5.0); Sodium 138 mmol/L (137-145)
[2021-10-18 20:27] LABS: Troponin I < 0.012 ng/mL (0.000-0.034)
[2021-10-18 20:45] VITALS: BP 119/88; PULSE 89; RESP 21; O2SAT 99
[2021-10-18 20:46] VITALS: BP 119/88; PULSE 96; RESP 16; O2SAT 100
[2021-10-18 21:41] LABS: EDCOVIDSCREEN Negative (Negative)
[2021-10-18 22:01] VITALS: BP 110/81; PULSE 85; RESP 14; O2SAT 100
[2021-10-18 22:13] LABS: Appearance Urine Clear (Clear); Bilirubin Urine 1+ (Negative); Color Urine Yellow (Yellow); Glucose Urine UA Negative (Negative); Ketones Urine 2+ mg/dL (Negative); Leukocyte Esterase Ur Negative LEU/UL (Negative); Nitrate Urine Negative (Negative); Protein Urine 1+ mg/dL (Negative); Specific Grav Ur >= 1.030 (1.001-1.035); Urobilinogen Urine 0.2 mg/dL (<2.0); pH Urine 6.5 (5.0-9.0)
[2021-10-18 22:17] LABS: Add Urine Microscopic? YES; Blood Urine Trace (Negative)
[2021-10-18 22:35] LABS: Bacteria Urine Trace /hpf; Mucus Urine Moderate /lpf; Squamous Epithelial Cell Urine Occasional /hpf (Few); WBC Urine 0-3 /hpf
[2021-10-18 23:23] LABS: Amphetamine Screen Urine Negative (Negative); Barbiturate Screen Urine Negative (Negative); Benzodiazepines Screen Urine Negative (Negative); Cannabinoid Screen Urine Positive (Negative); Cocaine Screen Urine Negative (Negative); Methadone Screen Urine Negative (Negative); Opiate Screen Urine Positive (Negative); Phencyclidine Screen Urine Negative (Negative)
[2021-10-18 23:36] LABS: Troponin I < 0.012 ng/mL (0.000-0.034)
[2021-10-19 00:03] VITALS: BP 110/81; PULSE 89; RESP 13; O2SAT 100
== END 2021-10-19 00:04 | disposition home or self-care (01) ==
PROVIDERS: Emergency Provider Emergency Medicine; PCP Family Medicine
DX: F41.0 Panic disorder [episodic paroxysmal anxiety] (principal); F31.81 Bipolar II disorder; F17.290 Nicotine dependence, other tobacco product, uncomplicated
CPT/HCPCS: 36415; 71046; 80048; 80307; 81001; 84443; 84484; 85025; 85380; 87426; 93005; 96360; 96361; 99284; A9270; C9803; J7030

== ENCOUNTER 2021-10-23 15:11 | Emergency (ER) | payer BC, SELFPAY ==
[2021-10-23 15:22] VITALS: BP 127/99; PULSE 79; RESP 18; TEMP 36.9; O2SAT 100
[2021-10-23 15:25] VITALS: BP 123/88; PULSE 87; RESP 20; TEMP 37; O2SAT 98
[2021-10-23 16:00] LABS: Basophils Percent Auto 0.2 % (0.2-1.2); Hematocrit 44.4 % (37.0-47.0); Immature Granulocyte Absolute 0.02 K/mm3 (0.00-0.031); Immature Granulocyte Percent A 0.2 % (0-0.5); Lymphocytes Absolute Auto 0.96 K/mm3 (0.9-3.2); Lymphocytes Percent Auto 10.1 % (18.3-44.2); Mean Corpuscular HGB Conc 33.8 g/dl (32-36); Mean Corpuscular Hemoglobin 30.7 pg (26-34); Mean Platelet Volume 9.3 fl (7.4-10.4); Monocytes Absolute Auto 0.3 K/mm3 (0.1-0.6); Monocytes Percent Auto 3.6 % (2.6-8.5); Neutrophils Absolute Auto 8.2 K/mm3 (1.3-6.7); Neutrophils Percent Auto 85.9 % (45.5-73.1); Platelet Count Result 283 k/mm3 (150-375); Red Blood Count 4.88 M/mm3 (4.2-5.4); Red Cell Distribution Width 11.9 % (11.5-14.5); White Blood Count 9.5 K/mm3 (4.5-10.0)
[2021-10-23 16:04] LABS: Add Urine Microscopic? YES; Appearance Urine Clear (Clear); Bilirubin Urine Negative (Negative); Blood Urine 1+ (Negative); Color Urine Yellow (Yellow); Glucose Urine UA Negative (Negative); Ketones Urine 2+ mg/dL (Negative); Leukocyte Esterase Ur Negative LEU/UL (Negative); Mucus Urine Heavy /lpf; Nitrate Urine Negative (Negative); Protein Urine 1+ mg/dL (Negative); Specific Grav Ur 1.029 (1.001-1.035); Squamous Epithelial Cell Urine Rare /hpf (Few); Urobilinogen Urine Negative mg/dL (<2.0); WBC Urine 0-3 /hpf
[2021-10-23 16:06] LABS: Alanine Aminotransferase 19 U/L (4-35); Albumin Level 4.7 g/dL (3.5-5.1); Alkaline Phosphatase 88 U/L (38-126); Anion Gap 9 mmol/L (8-16); Aspartate Amino Transferase 30 U/L (14-36); Bilirubin,Total 0.4 mg/dL (0.2-1.3); Blood Urea Nitrogen 9 mg/dL (7-17); Calcium 9.2 mg/dL (8.4-10.2); Carbon Dioxide 27 mmol/L (22-30); Chloride 101 mmol/L (98-107); Estimated CRCL calculation 54 ml/min; Estimated Glomerular Filt Rate > 60; Glucose 87 mg/dL (65-110); Potassium 3.7 mmol/L (3.4-5.0); Sodium 137 mmol/L (137-145)
[2021-10-23 16:13] LABS: Ethanol < 10 mg/dL (<10)
--- NOTE | 2021-10-23 16:16 | ED.PSYCH ---
HPI - Psych General Chief Complaint: Psychiatric Symptoms Stated Complaint: suicidal thoughts Time Seen by Provider: 10/23/21 15:47 Source: patient Mode of arrival: ambulatory Limitations: no limitations History of Present Illness HPI Narrative: 36-year-old male with a history of bipolar disorder presents secondary to increasing depression with some suicidal thoughts. He has been under active care of a psychiatrist as well as her primary care physician and a counselor. His primary care physician did start him on some Wellbutrin this past Sunday secondary to depression. Today he was having increasing suicidal thoughts and he became concerned about his own wellbeing so he called the crisis hotline. They talked to them for a while and told him he needs to call a friend. Can get me on the phone and subsequently thought it would be safer for him to come here to the emergency room. He has had a prior suicidal thoughts but never had an active suicidal attempt. He had a knife to one time years ago and think about cutting himself. He has had a couple of psychiatric admissions last one was approximately 2 years ago. He states he is currently a student at [employer]. Patient is also undergone a sex change and was born a female but now identifies as a male. Denies any illicit drug use but does smoke marijuana occasionally. Related Data Home Medications Medication Instructions Recorded Confirmed testosterone cypionate 200 mg/mL 100 mg IM WEEKLY ml 08/22/21 10/07/21 intramuscular oil Allergies Allergy/AdvReac Type Severity Reaction Status Date / Time amoxicillin Allergy Unknown Verified 10/23/21 15:49 Penicillins Allergy Unknown Verified 10/23/21 15:49 Review of Systems Review of Systems: CONSTITUTIONAL: Denies fever, chills, or sweats. EYES: Denies visual changes, redness, or discharge. ENT: Denies rhinorrhea, congestion, sore throat, or otalgia. CARDIOVASCULAR: Denies chest pain, palpitations, or edema. RESPIRATORY: Denies cough or dyspnea. GASTROINTESTINAL: Denies abdominal pain, nausea, vomiting, or diarrhea. GENITOURINARY: Denies dysuria or hematuria. SKIN: Denies rash or itching. MUSCULOSKELETAL: Denies back pain, joint pain, or myalgia. NEUROLOGIC: Denies headache, numbness, or weakness. PSYCHIATRIC: Depression with some suicidal ideation. 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 Head normocephalic atraumtaic. EYES: PERRLA/EOMI, conjunctivae very clear. NOSE: Normal no drainage EARS:TMS clear Efrain Ardon, with good light reflex. THROAT: Pharynx clear, no exudate. NECK: Supple. No adenopathy, no masses. RESPIRATORY: Airway patent, repsirations nonlabored. Clear to auscultation bilaterally, no rales, rhonchi, wheezing. CARDIOVASCULAR: Regular rate and rhythm without murmurs rubs or gallops. ABDOMINAL: Soft, nontender, nondistended, no hepatosplenomegally MUSCULOSKELETAl: Moves all extremities. Strenght/ROM intact, No edema, No calf tenderness. NEURO: Alert. Cranial nerves II through XII intact. Good gait. Good coordination SK
[2021-10-23 16:17] LABS: Amphetamine Screen Urine Negative (Negative); Barbiturate Screen Urine Negative (Negative); Benzodiazepines Screen Urine Negative (Negative); Cannabinoid Screen Urine Positive (Negative); Cocaine Screen Urine Negative (Negative); Methadone Screen Urine Negative (Negative); Opiate Screen Urine Positive (Negative); Phencyclidine Screen Urine Negative (Negative)
[2021-10-23 16:37] LABS: Thyroid Stimulating Hormone 0.359 uIU/mL (0.465-4.680)
[2021-10-23 17:44] LABS: SARS-CoV-2 RNA PCR Negative
--- NOTE | 2021-10-23 18:51 | PC.NURSE ---
[facility] called back. Will fax chart and updated vitals as requested. Pt resting in bed with no s/s of distress. O2 100% on RA p 80 BP 117/87 RR 18 Temp 98.1F oral
--- NOTE | 2021-10-23 19:14 | PC.NURSE ---
Chart faxed to [facility] as requested. Nurse also called back and asked to speak to pt. Pt is currently on phone in ED hallway, speaking to staff at [facility] re: possible placement.
[2021-10-23 22:29] VITALS: BP 120/93; PULSE 89; RESP 16; O2SAT 99
== END 2021-10-23 22:29 | disposition short-term general hospital (02) ==
PROVIDERS: Emergency Medicine; Emergency Provider Emergency Medicine; PCP Family Medicine
DX: R45.851 Suicidal ideations (principal); F31.81 Bipolar II disorder; Z20.822 Contact with and (suspected) exposure to COVID-19; F17.290 Nicotine dependence, other tobacco product, uncomplicated
CPT/HCPCS: 36415; 80053; 80307; 81001; 81025; 84443; 85025; 99285; C9803; U0003; U0005

== ENCOUNTER 2021-11-07 23:44 | Emergency (ER) | payer BC, SELFPAY ==
[2021-11-07 23:48] VITALS: BP 121/89; PULSE 77; RESP 16; TEMP 36.1; O2SAT 94
--- NOTE | 2021-11-07 23:56 | ECG_ITS ---
Measurements Intervals [place] Rate: 85 P: 72 TX: 175 QRS: 33 QRSD: 80 T: 49 QT: 360 QTc: 430 Interpretive Statements SINUS RHYTHM POSSIBLE LEFT VENTRICULAR HYPERTROPHY Electronically Signed On 11-08-2021 11:12:30 CDT by Lewis Gil M.D.
--- NOTE | 2021-11-08 00:14 | ED.GENADULT ---
HPI - General Adult General Chief complaint: Psychiatric Symptoms <Fly Valencia MD - Last Filed: 11/08/21 18:54> Stated complaint: SI <Fly Valencia MD - Last Filed: 11/08/21 18:54> Time Seen by Provider: 11/07/21 23:52 <Fly Valencia MD - Last Filed: 11/08/21 18:54> Source: patient and RN notes reviewed <Fly Valencia MD - Last Filed: 11/08/21 18:54> History of Present Illness HPI narrative: 36-year-old female transitioning to male presents to the emerge department for evaluation of worsening depression. Patient does have a longstanding history of depression and had recent inpatient psychiatric hospitalization approximately 2 weeks ago for 1 week. Patient was discharged 1 week ago and during that time has had follow-up with counseling. Patient states that the counseling is not helping and that the patient has had increased life stressors this week. Patient states that they had increased suicidal thoughts. Patient states that if they had access to a gun they would have used it. Patient denies any alcohol consumption. Patient denies take any medications with the intent for overdose. Patient did call the suicide hotline and was referred to the emergency department. Patient states he had some stomach pain related to anxiety earlier but that the stomach pain has since resolved. Patient declined food at this time. Patient is willing to take some medication for anxiety at this time. Patient is hoping for inpatient psychiatric placement. <Fly Valencia MD - Last Filed: 11/08/21 18:54> Related Data Home medications: Home Medications Medication Instructions Recorded Confirmed testosterone cypionate 200 mg/mL 100 mg IM WEEKLY ml 08/22/21 10/07/21 intramuscular oil escitalopram oxalate 20 mg tablet 20 mg PO DAILY 11/01/21 hydroxyzine HCl 25 mg tablet 25 mg PO QID PRN 11/01/21 <Fly Valencia MD - Last Filed: 11/08/21 18:54> Allergies/adverse reactions: Allergies Allergy/AdvReac Type Severity Reaction Status Date / Time amoxicillin Allergy Unknown Verified 11/07/21 23:54 Penicillins Allergy Unknown Verified 11/07/21 23:54 <Fly Valencia MD - Last Filed: 11/08/21 18:54> Review of Systems Review of Systems: CONSTITUTIONAL: Denies fever, chills, or sweats. EYES: Denies visual changes, redness, or discharge. ENT: Denies rhinorrhea, congestion, sore throat, or otalgia. CARDIOVASCULAR: Denies chest pain, palpitations, or edema. RESPIRATORY: Denies cough or dyspnea. GASTROINTESTINAL: See HPI GENITOURINARY: Denies dysuria or hematuria. SKIN: Denies rash or itching. MUSCULOSKELETAL: Denies back pain, joint pain, or myalgia. NEUROLOGIC: Denies headache, numbness, or weakness. PSYCHIATRIC: See HPI <Fly Valencia MD - Last Filed: 11/08/21 18:54> PMFSH Past Medical History Medical History: Medical History Bipolar disorder Bipolar II disorder Post-operative pain Torsion of left ovary Transgender woman on hormone therapy <Fly Valencia MD - Last Filed: 11/08/21 18:54> Surgical History Surgical History: Surgical History Hx of breast reduction, elective <Fly Valencia MD - Last Filed: 11/08/21 18:54> Family History Family History: Family History Father Hypertension Mother Hypertension Depression Anxiety Sibling Anxiety Depression <Fly Valencia MD - Last Filed: 11/08/21 18:54> Social History Social History: Social History Tobacco type: cigarettes and e-cigarettes/vaping Alcohol intake: current Alcohol use details: 2-3 wine coolers a month Substance use: current Substance use type: marijuana Additional occupation/education comments: garden worker Gender identity (if verbalized by the patient): Transgender Male <T
[2021-11-08 00:20] LABS: Appearance Urine Clear (Clear); Basophils Percent Auto 0.4 % (0.2-1.2); Bilirubin Urine 1+ (Negative); Eosinophils Percent Auto 0.4 % (0-4.4); Glucose Urine UA Negative (Negative); Hematocrit 47.3 % (37.0-47.0); Hemoglobin 15.8 g/dL (12.0-15.0); Immature Granulocyte Absolute 0.02 K/mm3 (0.00-0.031); Immature Granulocyte Percent A 0.3 % (0-0.5); Ketones Urine 1+ mg/dL (Negative); Leukocyte Esterase Ur Negative LEU/UL (Negative); Lymphocytes Absolute Auto 1.61 K/mm3 (0.9-3.2); Lymphocytes Percent Auto 23.9 % (18.3-44.2); Mean Corpuscular HGB Conc 33.4 g/dl (32-36); Mean Corpuscular Volume 92.9 fl (80-100); Mean Platelet Volume 9.7 fl (7.4-10.4); Monocytes Absolute Auto 0.3 K/mm3 (0.1-0.6); Monocytes Percent Auto 4.6 % (2.6-8.5); Neutrophils Absolute Auto 4.7 K/mm3 (1.3-6.7); Neutrophils Percent Auto 70.4 % (45.5-73.1); Nitrate Urine Negative (Negative); Platelet Count Result 244 k/mm3 (150-375); Protein Urine Trace mg/dL (Negative); Red Blood Count 5.09 M/mm3 (4.2-5.4); Red Cell Distribution Width 12.1 % (11.5-14.5); Specific Grav Ur 1.025 (1.001-1.035); Urobilinogen Urine 0.2 mg/dL (<2.0); White Blood Count 6.7 K/mm3 (4.5-10.0); pH Urine 6.5 (5.0-9.0)
[2021-11-08 00:22] LABS: Color Urine Dark Yellow (Yellow)
[2021-11-08 00:23] LABS: Add Urine Microscopic? YES; Blood Urine Trace (Negative)
[2021-11-08] MEDS: LORazepam (*CRX) 1 MG TABLET PO ×2 (00:25→11:16)
[2021-11-08 00:29] LABS: Bacteria Urine Trace /hpf; Mucus Urine Heavy /lpf; RBC Urine 0-2 /hpf (0-2); Squamous Epithelial Cell Urine Occasional /hpf (Few); WBC Urine 0-3 /hpf
[2021-11-08 00:40] LABS: Acetaminophen < 10 ug/mL (10-30); Ethanol < 10 mg/dL (<10); Salicylate < 1.0 mg/dL (2-20)
[2021-11-08 00:41] LABS: Alanine Aminotransferase 22 U/L (4-35); Albumin Level 4.6 g/dL (3.5-5.1); Alkaline Phosphatase 81 U/L (38-126); Anion Gap 6 mmol/L (8-16); Aspartate Amino Transferase 28 U/L (14-36); Bilirubin,Total 0.6 mg/dL (0.2-1.3); Blood Urea Nitrogen 9 mg/dL (7-17); Calcium 9.3 mg/dL (8.4-10.2); Carbon Dioxide 25 mmol/L (22-30); Chloride 104 mmol/L (98-107); Estimated CRCL calculation 54 ml/min; Estimated Glomerular Filt Rate > 60; Glucose 101 mg/dL (65-110); Sodium 135 mmol/L (137-145)
[2021-11-08 00:53] LABS: SARS-CoV-2 RNA PCR Negative
[2021-11-08 01:07] LABS: Amphetamine Screen Urine Negative (Negative); Barbiturate Screen Urine Negative (Negative); Benzodiazepines Screen Urine Negative (Negative); Cannabinoid Screen Urine Positive (Negative); Cocaine Screen Urine Negative (Negative); Methadone Screen Urine Negative (Negative); Opiate Screen Urine Negative (Negative); Phencyclidine Screen Urine Negative (Negative)
--- NOTE | 2021-11-08 01:31 | PC.NURSE ---
PT MEDICALLY CLEARED AT THIS TIME.
--- NOTE | 2021-11-08 01:37 | PC.NURSE ---
TREMAYNE AT CRISIS ON PHONE AND WILL SEND SOMEONE TO EVALUATE THE PATIENT.
--- NOTE | 2021-11-08 05:55 | PC.NURSE ---
pt to be placed per crisis. spoke with memanuel from [facility] at this time, emmanuel requested most recent vital signs and basic patient information. vitals and information given at this time.
[2021-11-08 07:34] VITALS: BP 116/84; PULSE 80; RESP 14; O2SAT 100
--- NOTE | 2021-11-08 08:54 | PC.NURSE ---
breakfast tray ordered
--- NOTE | 2021-11-08 10:17 | PC.NURSE ---
updated eta for [facility] 11:30-11:45
--- NOTE | 2021-11-08 13:12 | PC.NURSE ---
Awaiting EMS, ETA 1500. Patient updated.
--- NOTE | 2021-11-08 17:51 | PC.NURSE ---
Still awaiting EMS. Patient cooperative.
[2021-11-08 18:56] VITALS: BP 111/82; PULSE 84; RESP 16; O2SAT 98
== END 2021-11-08 18:58 ==
PROVIDERS: Emergency Medicine; Emergency Provider Emergency Medicine; PCP Family Medicine
DX: F31.81 Bipolar II disorder (principal); R45.851 Suicidal ideations; Z20.822 Contact with and (suspected) exposure to COVID-19; F17.210 Nicotine dependence, cigarettes, uncomplicated; R94.31 Abnormal electrocardiogram [ECG] [EKG]
CPT/HCPCS: 36415; 80053; 80307; 81001; 81025; 84443; 85025; 93005; 99284; A9270; C9803; U0003; U0005